=== PATIENT | female | born 1970 | race Caucasian/White ===

== ENCOUNTER 2018-03-27 00:39 | Inpatient (IN) | payer BC ==
[2018-03-27] MEDS ORDERED: Pantoprazole 40 MG VIAL ONE (01:01)
[2018-03-27] MEDS ORDERED: Lactated Ringer's 1,000 ML IV SCH (02:00)
[2018-03-27] MEDS ORDERED: Lactated Ringer's 500 ML IV SCH (02:00)
[2018-03-27] MEDS ORDERED: Morphine 4 MG/ML VIAL ONE (02:52)
--- NOTE | 2018-03-27 02:56 | HP ---
CHIEF COMPLAINT: Severe epigastric pain. HISTORY OF PRESENT ILLNESS: This is a 48-year-old female with a 5-6 week history of epigastric pain. 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 developed severe epigastric p ain. She was taken to the hospital by ambulance. No loss of consciousness. The pain is really eric re with any motion. She was noted to be somewhat hypotensive with systolic blood pressure of 80 and tachycardic to 130. There, she was given IV fluids and is much better now. PAST MEDICAL HISTORY: Significant for a frozen left shoulder that began with a Toradol injection and so she has been on a lot of nonsteroidal anti-inflammatories for that. She also has history of migr martha headaches. The frozen shoulder began in July. MEDICATIONS: Nexium, Topamax. She is on a muscle relaxant and [place]. ALLERGIES: She has no known drug allergies. PAST SURGICAL HISTORY: section. She has had knee arthroscopy, repair of a fractured arm. SOCIAL HISTORY: She is single. 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 No tobacco. Rare alcohol. FAMILY HISTORY: Migraine headaches. PHYSICAL EXAMINATION: VITAL SIGNS: Temperature is 99, pulse 110. She is 94/65. She says she has a long history of low bl ood pressure. GENERAL: She is awake, alert and lying still. Her left shoulder was propped up on pillows. HEENT: Pupils equal, round, and reactive. Extraocular motor intact. Pharynx clear. Good dentition . NECK: Supple, no thyroid masses, no carotid bruits. ABDOMEN: She has got peritonitis in the upper abdomen. Mild tenderness in the lower abdomen. LUNGS: Clear. HEART: Regular rate and rhythm. EXTREMITIES: She has a frozen left shoulder. LABORATORY AND X-RAY FINDINGS: Sodium 139, potassium 3.3, chloride 108, CO2 of 19, creatinine 0.69, BUN of 16, glucose 104. White count 9.8, H&H 12 and 38, platelet count 381. Urinalysis, trace leuko cytes. CT scan shows very tiny punctate area of free air in the proximal duodenum. Minimal free flu id. ASSESSMENT: Perforated duodenal ulcer. PLAN: Admit. IV hydrate. Antibiotics. PLAN: Diagnostic laparoscopy, laparoscopic omental patch.
[2018-03-27] MEDS ORDERED: Ondansetron HCl/PF 8 MG in Sodium Chloride 0.9% 50 ML IVPB SCH ×2 (03:00→09:15)
[2018-03-27] MEDS ORDERED: Ondansetron ODT 4 MG TAB SL PRN (04:43)
[2018-03-27] MEDS ORDERED: Ondansetron HCl/PF 4 MG/2 ML Vial IVP PRN ×2 (04:43→08:50)
[2018-03-27] MEDS ORDERED: MEROPENEM 1 GM/50 ML 1 GM in Premix Bag 1 BAG IVPB SCH (05:00)
[2018-03-27] MEDS ORDERED: Piperacillin/Tazobactam 3.375 GM VIAL ONE (06:13)
[2018-03-27] MEDS ORDERED: Fentanyl 100 MCG/2 ML VIAL ONE ×2 (06:33→06:55)
[2018-03-27] MEDS ORDERED: Bupivacaine HCl 0.25%/Epi 0.0005/PF 10 ML VIAL FS ONE (06:38)
[2018-03-27] MEDS ORDERED: HYDROmorphone 0.5 MG/0.5 ML SYRINGE ONE ×4 (06:56→07:02)
[2018-03-27 07:16] LABS: #Lymphocytes 1.9 thou/uL (1.20-3.40); #Monocytes 0.5 thou/uL (0.11-0.59); #Neutrophils 6.8 thou/uL (1.40-6.50); %Basophils 0.5 % (0.0-1.0); %Eosinophils 0.2 % (0.0-10.0); %Lymphocytes 20.2 % (21.0-51.0); %Monocytes 5.8 % (0.0-10.0); %Neutrophils 73.4 % (42.0-75.0); Hemoglobin 8.8 g/dL (12.0-16.0); Mean Corpuscular HGB CONC 34.6 g/dL (32.0-36.0); Mean Corpuscular Hemoglobin 32.3 pg (27.0-31.0); Mean Corpuscular Volume 93.3 fL (78.0-98.0); Platelet Count 184 thou/uL (130-400); Red Blood Cell (RBC) Count 2.71 mill/uL (4.20-5.40); White Blood Cell (WBC) Count 9.3 thou/uL (4.8-10.8)
[2018-03-27] MEDS ORDERED: Midazolam HCl 5 mg/5 ml Vial ONE (07:19)
[2018-03-27] MEDS ORDERED: Phenylephrine HCL 10 MG/ML VIAL ONE (07:20)
[2018-03-27 07:23] LABS: ALT (SGPT) Less than 7 U/L (8-55); AST (SGOT) 7 U/L (5-34); Albumin 3.2 g/dL (3.5-5.0); Alkaline Phosphatase 53 U/L (40-150); Anion Gap 9 mmol/L (10-20); BUN (Urea Nitrogen) 11 mg/dL (7.0-18.7); Bilirubin, Total 0.6 mg/dL (0.2-1.2); Calc. Creatinine Clearance 0 mL/min (70-130); Calcium 7.7 mg/dL (7.8-10.44); Carbon Dioxide 21 mmol/L (22-29); Chloride 114 mmol/L (98-107); Estimated GFR-MDRD Greater than 90; Globulin 1.8 g/dL (2.4-3.5); Glucose 94 mg/dL (70-105); Potassium 3.4 mmol/L (3.5-5.1); Sodium 141 mmol/L (136-145)
[2018-03-27] MEDS ORDERED: Dextrose 50% Abboject 50 ML SYRINGE SLOW IVP PRN (08:39)
[2018-03-27] MEDS ORDERED: hydrALAZINE 20 MG/ML VIAL SLOW IVP PRN (08:39)
[2018-03-27] MEDS ORDERED: diphenhydrAMINE 50 MG/ML VIAL IVP PRN (08:39)
[2018-03-27] MEDS ORDERED: Dextrose 5% in Water 1,000 ML IV PRN (08:39)
[2018-03-27] MEDS ORDERED: Promethazine HCl 25 MG/ML VIAL IM PRN ×2 (08:39→08:50)
[2018-03-27] MEDS ORDERED: Fentanyl 100 MCG/2 ML VIAL SLOW IVP PRN (08:42)
[2018-03-27] MEDS ORDERED: Acetaminophen 1,000 MG in Premix Bag 1 BAG IVPB PRN (08:43)
[2018-03-27] MEDS ORDERED: Promethazine HCl 25 MG/ML VIAL SLOW IVP PRN (08:50)
[2018-03-27] MEDS ORDERED: HYDROmorphone 2 MG/ML VIAL SLOW IVP PRN (08:50)
[2018-03-27] MEDS ORDERED: Pantoprazole 40 MG VIAL IVP SCH (09:00)
[2018-03-27] MEDS: Piperacillin/Tazobactam 3.375 GM in Sodium Chloride 0.9% 100 ML IVPB SCH ×4 (09:52→23:26)
[2018-03-27] MEDS: Pantoprazole 40 MG VIAL IVP SCH (09:59)
[2018-03-27] MEDS: D5 1/2 NS w/20 mEq KCL 1,000 ML IV SCH ×2 (10:00→19:00)
[2018-03-27 11:34] VITALS: BMI 25.7
[2018-03-27] MEDS ORDERED: Glycopyrrolate 0.2 MG/ML 5 ML SYRINGE ONE (13:09)
[2018-03-27] MEDS ORDERED: PHENYLEPHRINE-NS 100 MCG/ML 10 ML SYRINGE ONE (13:09)
[2018-03-27] MEDS ORDERED: Dexamethasone 20 MG/5 ML VIAL ONE (13:09)
[2018-03-27] MEDS ORDERED: Ondansetron HCl/PF 4 MG/2 ML Vial ONE (13:09)
[2018-03-27] MEDS ORDERED: Esmolol 100 MG/10 ML VIAL ONE (13:09)
[2018-03-27] MEDS ORDERED: Succinylcholine Chloride 20 MG/ML 10 ml SYRINGE FS ONE (13:09)
[2018-03-27] MEDS ORDERED: PROPOFOL 200 MG/20 ML VIAL ONE (13:09)
[2018-03-27] MEDS ORDERED: Lidocaine 1% PF 5 ML VIAL ONE (13:09)
--- NOTE | 2018-03-27 15:57 | OP ---
PREOPERATIVE DIAGNOSIS: Perforated duodenal ulcer. SURGEON: Master Centeno M.D. PROCEDURE PERFORMED: Laparoscopic closure of a perforated duodenal ulcer with omental patch and irri gation of abdomen. INDICATIONS: This is a 48-year-old female, who has been on intensive doses of nonsteroidals for shou lder pain over the last year. She has had a month history of boring epigastric pain that became acut onel severe yesterday afternoon about 1:00 p.m. She went to the ER where a CT scan showed a small foc us of extraluminal air in the first part of the duodenum. FINDINGS: Perforated duodenal ulcer with superior and anterior. The anterior surface was somewhat s uperior on the duodenum between the first and second portion just under the falciform ligament. PROCEDURE IN DETAIL: After informed consent was obtained, the patient was taken to the operating jorge m and given general endotracheal anesthesia. She was placed in the supine position. The abdomen was prepped and draped in usual fashion. Local anesthesia infiltrated subcutaneously and deep and a sub umbilical incision was performed. Veress needle inserted. Drop test performed. Pneumoperitoneum wa s created to a volume of 2 liters of carbon dioxide. Utilizing a bladeless 5 mm trocar and 0-degree laparoscope direct visual entry the abdominal cavity was performed. Pneumoperitoneum was created to a pressure of 15 mmHg and the patient placed in steep reverse Trendelenburg position. A [place] li lien retractor inserted. Left lobe of liver retracted superiorly and the ulcer was found. The ulcer was closed utilizing a 2-0 PDS V-Loc running. Then, the abdomen was thoroughly irrigated after sampl es were obtained for culture. Then continued to irrigate and remove this fluid until the abdomen was clean then took omentum and using 2-0 silk sutures tied intracorporeally. This was used to cover th e perforated area. Then hemostasis assured. Trocars and retractors removed. Abdomen decompressed. Skin closed with interrupted 4-0 Rapide. Dermabond applied. The patient tolerated the procedure we ll and was transferred to recovery in good condition.
[2018-03-27] MEDS: Topiramate 100 MG TAB PO SCH (20:35)
[2018-03-28] MEDS: D5 1/2 NS w/20 mEq KCL 1,000 ML IV SCH ×4 (02:01→20:21)
[2018-03-28 05:20] LABS: #Lymphocytes 1.5 thou/uL (1.20-3.40); #Monocytes 0.5 thou/uL (0.11-0.59); #Neutrophils 7.5 thou/uL (1.40-6.50); %Basophils 0.1 % (0.0-1.0); %Eosinophils 0.2 % (0.0-10.0); %Monocytes 5.3 % (0.0-10.0); %Neutrophils 78.4 % (42.0-75.0); Hemoglobin 8.4 g/dL (12.0-16.0); Mean Corpuscular HGB CONC 33.2 g/dL (32.0-36.0); Mean Corpuscular Hemoglobin 31.2 pg (27.0-31.0); Mean Corpuscular Volume 94.1 fL (78.0-98.0); Platelet Count 245 thou/uL (130-400); RBC Distribution Width 11.9 % (11.5-14.5); Red Blood Cell (RBC) Count 2.69 mill/uL (4.20-5.40); White Blood Cell (WBC) Count 9.6 thou/uL (4.8-10.8)
[2018-03-28] MEDS: Topiramate 100 MG TAB PO SCH ×2 (05:26→20:13)
[2018-03-28] MEDS: Piperacillin/Tazobactam 3.375 GM in Sodium Chloride 0.9% 100 ML IVPB SCH ×4 (05:30→23:24)
[2018-03-28 05:32] LABS: Anion Gap 8 mmol/L (10-20); BUN (Urea Nitrogen) 7 mg/dL (7.0-18.7); Calc. Creatinine Clearance 135 mL/min (70-130); Calcium 8.2 mg/dL (7.8-10.44); Carbon Dioxide 20 mmol/L (22-29); Chloride 111 mmol/L (98-107); Estimated GFR-MDRD Greater than 90; Glucose 128 mg/dL (70-105); Potassium 3.6 mmol/L (3.5-5.1); Sodium 135 mmol/L (136-145)
[2018-03-28] MEDS ORDERED: Enoxaparin Sodium 40 MG/0.4 ML SYRINGE SC SCH (06:00)
[2018-03-28] MEDS: Pantoprazole 40 MG VIAL IVP SCH (08:42)
[2018-03-28] MEDS ORDERED: Rizatriptan Benzoate 10 MG MLT TAB PO PRN (09:48)
--- NOTE | 2018-03-28 12:11 | RAD ---
UPPER GI SINGLE CONTRAST: Date: 03/28/18 PROVIDED CLINICAL HISTORY: Post gastric surgery for gastric ulcer. FINDINGS: Multiple swallows of water soluble contrast were administered orally. Contrast material traverses the gastroesophageal junction normally without holdup. There is no evidence for extravasation of contras t material. IMPRESSION: No evidence for contrast extravasation or holdup. POS: [facility]
[2018-03-28] MEDS: Hydrocodone-Acetamin 15 ML UDCUP PO PRN ×2 (12:52→17:32)
[2018-03-28] MEDS: SUMAtriptan Succinate 50 MG TAB PO PRN (15:52)
[2018-03-28] MEDS: Ondansetron HCl/PF 4 MG/2 ML Vial IVP PRN (18:33)
[2018-03-29] MEDS: Hydrocodone-Acetamin 15 ML UDCUP PO PRN ×4 (00:19→18:21)
[2018-03-29] MEDS: Topiramate 100 MG TAB PO SCH ×2 (04:20→21:43)
[2018-03-29] MEDS: D5 1/2 NS w/20 mEq KCL 1,000 ML IV SCH ×3 (04:20→21:46)
[2018-03-29] MEDS: Piperacillin/Tazobactam 3.375 GM in Sodium Chloride 0.9% 100 ML IVPB SCH ×3 (05:41→18:11)
[2018-03-29] MEDS: Ondansetron HCl/PF 4 MG/2 ML Vial IVP PRN (05:52)
[2018-03-29] MEDS ORDERED: Fluconazole In NaCl,Iso-Osm 200 MG in Premix Bag 1 BAG IVPB SCH (09:00)
[2018-03-29] MEDS: Pantoprazole 40 MG VIAL IVP SCH (09:31)
[2018-03-29] MEDS: Enoxaparin Sodium 40 MG/0.4 ML SYRINGE SC SCH (09:31)
[2018-03-30] MEDS: Piperacillin/Tazobactam 3.375 GM in Sodium Chloride 0.9% 100 ML IVPB SCH ×4 (00:55→17:47)
[2018-03-30 06:44] LABS: #Eosinphils 0.1 thou/uL (0.0-0.7); #Lymphocytes 1.6 thou/uL (1.20-3.40); #Monocytes 0.8 thou/uL (0.11-0.59); #Neutrophils 7.1 thou/uL (1.40-6.50); %Basophils 0.3 % (0.0-1.0); %Eosinophils 0.7 % (0.0-10.0); %Lymphocytes 16.8 % (21.0-51.0); %Neutrophils 74.3 % (42.0-75.0); Hemoglobin 9.3 g/dL (12.0-16.0); Mean Corpuscular HGB CONC 33.8 g/dL (32.0-36.0); Mean Corpuscular Hemoglobin 31.7 pg (27.0-31.0); Mean Corpuscular Volume 93.8 fL (78.0-98.0); Platelet Count 337 thou/uL (130-400); RBC Distribution Width 11.7 % (11.5-14.5); Red Blood Cell (RBC) Count 2.93 mill/uL (4.20-5.40); White Blood Cell (WBC) Count 9.5 thou/uL (4.8-10.8)
[2018-03-30 06:54] LABS: ALT (SGPT) 17 U/L (8-55); AST (SGOT) 14 U/L (5-34); Albumin 3.2 g/dL (3.5-5.0); Alkaline Phosphatase 90 U/L (40-150); Anion Gap 9 mmol/L (10-20); BUN (Urea Nitrogen) 4 mg/dL (7.0-18.7); Bilirubin, Total 1.1 mg/dL (0.2-1.2); Calc. Creatinine Clearance 120 mL/min (70-130); Calcium 8.4 mg/dL (7.8-10.44); Carbon Dioxide 18 mmol/L (22-29); Chloride 108 mmol/L (98-107); Estimated GFR-MDRD Greater than 90; Globulin 2.4 g/dL (2.4-3.5); Glucose 107 mg/dL (70-105); Potassium 3.7 mmol/L (3.5-5.1); Protein, Total 5.6 g/dL (6.0-8.3); Sodium 131 mmol/L (136-145)
[2018-03-30] MEDS: D5 1/2 NS w/20 mEq KCL 1,000 ML IV SCH ×2 (08:50→17:46)
[2018-03-30] MEDS: Topiramate 100 MG TAB PO SCH ×2 (08:51→21:48)
[2018-03-30] MEDS: SUMAtriptan Succinate 50 MG TAB PO PRN (08:51)
[2018-03-30] MEDS: Hydrocodone-Acetamin 15 ML UDCUP PO PRN ×2 (08:52→17:45)
[2018-03-30] MEDS: Enoxaparin Sodium 40 MG/0.4 ML SYRINGE SC SCH (08:54)
[2018-03-30] MEDS: Pantoprazole 40 MG VIAL IVP SCH (09:00)
[2018-03-30] MEDS: Fluconazole In NaCl,Iso-Osm 400 MG in Premix Bag 1 BAG IVPB SCH (09:03)
--- NOTE | 2018-03-30 21:14 | PDOC.PN ---
- Subjective Encounter Start Date: 03/30/18 Encounter Start Time: 21:00 Subjective: Consult for hx of migraine headaches on Topamax currently. Feels better -: since Topamax resumed on schedule. s/p laparoscopic repair of perforated -: duodenal ulcer with omental patch POD #3. Less abd pain, tolerating liquids - Objective MAR Reviewed: Yes Vital Signs & Weight: Vital Signs (12 hours) Temp Pulse Resp BP Pulse Ox 03/30/18 20:00 99.8 F H 95 16 107/73 98 03/30/18 11:45 98.3 F 91 16 110/78 98 Weight Weight 155 lb I&O: 03/29/18 03/30/18 03/31/18 06:59 06:59 06:59 Intake Total 2036 3200 Balance 2036 3200 Result Diagrams: 03/30/18 05:55 03/30/18 05:55 Additional Labs: Microbiology 03/27/18 08:20 Peritoneal fluid Body Fluid Culture - Final Presumptive Radha albicans EKG Reviewed by me: Yes (Tele - SR) Phys Exam - Physical Examination Constitutional: NAD HEENT: PERRLA, sclera anicteric, oral pharynx no lesions Neck: no nodes, no JVD, supple, full ROM Respiratory: no wheezing, no rales, no rhonchi, clear to auscultation bilateral Cardiovascular: RRR, no significant murmur, no rub, gallop mild TTP Gastrointestinal: soft, no distention, positive bowel sounds Musculoskeletal: no edema, pulses present Neurological: non-focal, normal sensation, moves all 4 limbs Psychiatric: normal affect, A&O x 3 Skin: no rash, normal turgor, cap refill <2 seconds Dx/Plan (1) Migraine headache Code(s): G43.909 - MIGRAINE, UNSP, NOT INTRACTABLE, WITHOUT STATUS MIGRAINOSUS Status: Acute Comment: Improved with resumption of Topamax 100mg BID, continue outpt regimen, IVF's, supportive mgmt (2) Perforated duodenal ulcer Code(s): K26.5 - CHRONIC OR UNSPECIFIED DUODENAL ULCER WITH PERFORATION Status : Acute Comment: s/p laparoscopic repair with omental patch POD #3, pain control, OOB (3) Shoulder, capsulitis, adhesive Code(s): M75.00 - ADHESIVE CAPSULITIS OF UNSPECIFIED SHOULDER Status: Chronic Qualifiers: Laterality: left Qualified Code(s): M75.02 - Adhesive capsulitis of left shoulder Comment: Chronic condition, outpt PT/OT after d/c - Plan continue antibiotics, patient financial services specialist, out of bed/ambulate, DVT proph w/SCDs Stable currently -: OOB/ambulate -: Continue Zosyn and Diflucan -: Continue Topamax 100mg BID -: Limit Morphine sulfate as this can precipitate further headaches * Thank you for the consult. Will continue to follow with primary service.
[2018-03-31] MEDS: Piperacillin/Tazobactam 3.375 GM in Sodium Chloride 0.9% 100 ML IVPB SCH ×3 (00:20→12:25)
[2018-03-31] MEDS: D5 1/2 NS w/20 mEq KCL 1,000 ML IV SCH ×2 (00:28→10:00)
[2018-03-31] MEDS: Hydrocodone-Acetamin 15 ML UDCUP PO PRN ×2 (00:34→09:59)
[2018-03-31] MEDS: SUMAtriptan Succinate 50 MG TAB PO PRN (00:41)
[2018-03-31] MEDS: Pantoprazole 40 MG VIAL IVP SCH (09:59)
[2018-03-31] MEDS: Topiramate 100 MG TAB PO SCH (09:59)
[2018-03-31] MEDS: Fluconazole In NaCl,Iso-Osm 400 MG in Premix Bag 1 BAG IVPB SCH (10:00)
[2018-03-31] MEDS: Enoxaparin Sodium 40 MG/0.4 ML SYRINGE SC SCH (10:00)
[2018-03-31 17:11] VITALS: BP 100/65; TEMP 98.1
--- NOTE | 2018-04-01 00:44 | DIS ---
DISCHARGE DIAGNOSES: Perforated duodenal ulcer, migraine headaches, yeast peritonitis. PROCEDURES DURING ADMISSION: 1. Laparoscopic repair of perforated ulcer with omental patch. 2. IV fluids. HOSPITAL COURSE: Patient was admitted. She was given the antibiotics, taken to the operating room w here she underwent a diagnostic laparoscopy, laparoscopic repair of a perforated ulcer and omental pa tch. Cultures grew out yeast, presumptive Radha albicans. She was started on Diflucan. She had a postoperative Gastrografin swallow that was fine. She was started on liquids. She is tolerating th em, but then she developed a severe migraine headache because she had been off her Imitrex that was r estarted; now, she is better. She is tolerating liquids well. She is discharged home on Protonix 40 daily, Diflucan 200 daily, [place] and Zofran. She will follow u p with me in 2 weeks.
== END 2018-03-31 18:26 | disposition home or self-care (01) | DRG 326 ==
LOC: ERS 00:39 → ERHOLD 01:47 → SURG A 09:08
PROVIDERS: ADMIT Surgery; ATTEND Surgery
PROC: 0DQ94ZZ Repair Duodenum, Percutaneous Endoscopic Approach (ICD-10-PCS; principal; 2018-03-27)
PROC: 0DU947Z Supplement Duodenum with Autologous Tissue Substitute, Percutaneous Endoscopic Approach (ICD-10-PCS; 2018-03-27)
DX: K26.5 Chronic or unspecified duodenal ulcer with perforation (principal); K65.9 Peritonitis, unspecified; B37.89 Other sites of candidiasis; M75.02 Adhesive capsulitis of left shoulder; G43.909 Migraine, unspecified, not intractable, without status migrainosus; Z79.891 Long term (current) use of opiate analgesic; Z79.1 Long term (current) use of non-steroidal anti-inflammatories (NSAID); Z87.81 Personal history of (healed) traumatic fracture; Z87.891 Personal history of nicotine dependence
CPT/HCPCS: 36415; 74241; 80048; 80053; 85025; 86850; 86900; 86901; 87070; 87205; 96360; 96361; 96365; 96367; 96375; C9113; J0131; J1100; J1170; J1200; J1450; J1650; J2001; J2185; J2250; J2270; J2370; J2405; J2543; J2550; J2704; J3010; J7050

== ENCOUNTER 2018-04-06 15:36 | Inpatient (IN) | payer BC ==
[~2018-04-06 15:36] MED LIST: ISOVUE-370 76%-LOCM 1 ML ONE
[2018-04-06 17:08] LABS: #Eosinphils 0.1 thou/uL (0.0-0.7); #Monocytes 0.6 thou/uL (0.11-0.59); #Neutrophils 9.2 thou/uL (1.40-6.50); %Basophils 0.2 % (0.0-1.0); %Eosinophils 0.6 % (0.0-10.0); %Lymphocytes 16.9 % (21.0-51.0); %Neutrophils 77.2 % (42.0-75.0); Hemoglobin 11.1 g/dL (12.0-16.0); Mean Corpuscular HGB CONC 34.1 g/dL (32.0-36.0); Mean Corpuscular Hemoglobin 31.6 pg (27.0-31.0); Mean Corpuscular Volume 92.6 fL (78.0-98.0); Mean Platelet Volume 6.4 fL (7.4-10.4); Platelet Count 693 thou/uL (130-400); RBC Distribution Width 12.2 % (11.5-14.5); Red Blood Cell (RBC) Count 3.51 mill/uL (4.20-5.40); White Blood Cell (WBC) Count 11.9 thou/uL (4.8-10.8)
[2018-04-06 17:30] LABS: ALT (SGPT) 9 U/L (8-55); AST (SGOT) 12 U/L (5-34); Alkaline Phosphatase 132 U/L (40-150); Anion Gap 15 mmol/L (10-20); BUN (Urea Nitrogen) 9 mg/dL (7.0-18.7); Bilirubin, Total 0.3 mg/dL (0.2-1.2); Calc. Creatinine Clearance 0 mL/min (70-130); Calcium 9.7 mg/dL (7.8-10.44); Carbon Dioxide 22 mmol/L (22-29); Chloride 105 mmol/L (98-107); Estimated GFR-MDRD 81; Globulin 3.5 g/dL (2.4-3.5); Glucose 107 mg/dL (70-105); Potassium 3.7 mmol/L (3.5-5.1); Protein, Total 7.5 g/dL (6.0-8.3); Sodium 138 mmol/L (136-145)
[2018-04-06 17:44] LABS: BHCG - Serum Negative (NEGATIVE); Pregs Control Background? CLEAR/WHITE (CLR/WHITE); Pregs Control Bar Appear? YES (CONTROL BAR)
[2018-04-06] MEDS ORDERED: Morphine 4 MG/ML VIAL ONE (17:44)
[2018-04-06] MEDS ORDERED: Ondansetron HCl/PF 4 MG/2 ML Vial ONE (17:44)
[2018-04-06] MEDS ORDERED: Piperacillin/Tazobactam 4.5 GM VIAL ONE (17:44)
[2018-04-06] MEDS ORDERED: Sodium Chloride 0.9% 100 ML ONE (17:46)
[2018-04-06 19:08] LABS: Bilirubin Negative (Negative); Blood, Urine Negative (Negative); Glucose, Urine (Dipstick) Negative (Negative); Leukocyte Negative (Negative); Nitrite Negative (Negative); Protein, Urine (Dipstick) Negative (Neg-Trace); Specific Gravity, Urine 1.015 (1.005-1.030); Urobilinogen 0.2 mg/dL (0.2-1.0)
[2018-04-06 19:10] LABS: Clarity CLEAR (Clear)
[2018-04-06 19:11] LABS: Pregnancy Test - Urine (BHCG) Negative (Negative); Pregu Control Background? CLEAR/WHITE (CLR/WHITE); Pregu Control Bar Appear? YES (CONTROL BAR); Specific Gravity 1.015 (1.002-1.036)
--- NOTE | 2018-04-06 20:12 | CT ---
ABDOMEN CT WITH CONTRAST PELVIC CT WITH CONTRAST 04/06/18 HISTORY: Abdominal pain, right sided. Patient had a perforated gastric ulcer two weeks ago. Patient became sep tic at the time of surgery. Patient having worsening tenderness and erythema. COMPARISON: 03/26/18. FINDINGS: ABDOMEN CT: Lung bases demonstrate scar/atelectasis. Normal cardiac silhouette. The descending thoracic aorta and abdominal aorta are unchanged. Symmetric attenuation of the psoas muscles. Portal vein is patent. Ga llbladder is mildly prominent but unremarkable. Stable hypodensity in the left hepatic lobe. Stable enhancement of the liver, spleen, pancreas, and b ilateral adrenal glands. Symmetric enhancement of the kidneys. Bilaterally, no obstructive uropathy. No mesenteric mass, lymphadenopathy, free air, or significant free fluid. Contrast opacifies an overall normal appearing stomach. There is mild mucosal prominence of the gastr ic antrum without evidence of perforation. Duodenum and small bowel loops are normal in caliber. Ileo cecal junction is grossly unremarkable. Normal caliber contrast filled appendix is identified. Scatte red fecal material and contrast in a nondistended, nondilated colon. There is subcutaneous fat stranding and small pockets of air noted along the anterior lateral left an d right abdominal wall. There is stranding of the subcutaneous fat along the right anterior abdominal wall measuring 7.7 x 2.4 cm. This fat has attenuation coefficient of 10 Hounsfield units. An ill-def ined postoperative fluid collection is favored. A completely enhancing well formed abscess is not see n at this time. Continued surveillance is recommended. The possibility of a developing infected fluid collection cannot be completely excluded. Presence of air may be postoperative as there is air on th e contralateral side. PELVIC CT: Probable tampon in the vaginal vault. Uterus and adnexal structures are unremarkable. No pelvic mass, lymphadenopathy, free air or free fluid. Urinary bladder is unremarkable. No lytic lesions in the osseous structures. IMPRESSION: 1. No evidence of free air or abscess within the peritoneal cavity. 2. Asymmetric right ventral subcutaneous fat stranding which may represent an ill-defined postop erative or early infected fluid collection. The margins are not well circumscribed. At this time. a p ercutaneous drainage catheter is not warranted. Continued close surveillance is recommended. POS: [facility]
[2018-04-06] MEDS ORDERED: Morphine 4 MG/ML VIAL SLOW IVP PRN (21:59)
[2018-04-06] MEDS ORDERED: Ondansetron HCl/PF 4 MG/2 ML Vial IVP PRN (21:59)
[2018-04-06] MEDS ORDERED: Ondansetron ODT 4 MG TAB SL PRN (21:59)
[2018-04-06] MEDS: Sodium Chloride 0.9% 1,000 ML IV SCH (22:19)
[2018-04-06] MEDS: Topiramate 100 MG TAB PO SCH (22:19)
[2018-04-06 22:49] VITALS: BMI 25.4
[2018-04-06] MEDS: Piperacillin/Tazobactam 4.5 GM in Sodium Chloride 0.9% 100 ML IVPB SCH (23:00)
[2018-04-07] MEDS: Piperacillin/Tazobactam 4.5 GM in Sodium Chloride 0.9% 100 ML IVPB SCH (06:13)
--- NOTE | 2018-04-07 07:31 | HP ---
CHIEF COMPLAINT: Right lower quadrant abdominal pain. HISTORY OF PRESENT ILLNESS: This is a 48-year-old female who on 03/27/2018 had a laparoscopic closur e of perforated duodenal ulcer with omental patch. Postoperatively, she did have some bruising at th e right trocar site; however, it has gotten much more red, hot. She has developed subjective fever a nd a CT scan consistent with an abscess. PAST SURGICAL HISTORY: She has left frozen shoulder, migraine headaches. MEDICATIONS: Nexium, Topamax. She is on a muscle relaxant and [place]. ALLERGIES: She has no known drug allergies. SOCIAL HISTORY: She is . She is a flight instructor. Occasional alcohol, no tobacco. FAMILY HISTORY: Migraine headaches. PHYSICAL EXAMINATION: VITAL SIGNS: Temperature 98.7, pulse 75, blood pressure 95/66. GENERAL: She is awake, alert, in no apparent distress. HEENT: Unremarkable. LUNGS: Clear. HEART: Regular rate and rhythm. ABDOMEN: There is a tender 8 cm red, swollen area in the right lower quadrant. EXTREMITIES: Unremarkable other than her left frozen shoulder. LABORATORY DATA AND IMAGING: White count is 11.9, H&H is 11 and 32, platelet count 693. Electrolyte s are fine. CT scan shows pockets of air and mixed fluid densities in a swollen area, right lower qu adrant with inflammation. ASSESSMENT: Abdominal wall abscess secondary to infected hematoma. PLAN: Incision and drainage in the operating room. CONSENT: I have discussed the planned procedure as well as risk of bleeding, infection, recurrence. She understands and gives informed consent.
[2018-04-07] MEDS ORDERED: Fentanyl 100 MCG/2 ML VIAL ONE ×3 (09:03→11:05)
[2018-04-07] MEDS ORDERED: HYDROmorphone 0.5 MG/0.5 ML SYRINGE ONE ×2 (09:03→10:51)
[2018-04-07] MEDS ORDERED: Bupivacaine/Epinephrine 0.25% 30 ML VIAL ONE (09:07)
[2018-04-07] MEDS: Sodium Chloride 0.9% 1,000 ML IV SCH (09:43)
[2018-04-07] MEDS ORDERED: Piperacillin/Tazobactam 3.375 GM VIAL ONE (09:44)
[2018-04-07] MEDS ORDERED: Neomycin-Polymyxin 1 ML AMP ONE (09:44)
[2018-04-07] MEDS ORDERED: HYDROcodone/Acetaminophen 10/325 mg Tablet PO PRN ×2 (10:09)
[2018-04-07] MEDS ORDERED: Morphine 4 MG/ML Carpuject SLOW IVP PRN (10:09)
[2018-04-07] MEDS ORDERED: Promethazine HCl 25 MG/ML VIAL IM PRN ×2 (10:09→10:34)
[2018-04-07] MEDS ORDERED: Dextrose 50% Abboject 50 ML SYRINGE SLOW IVP PRN (10:09)
[2018-04-07] MEDS ORDERED: Ondansetron HCl/PF 4 MG/2 ML Vial IVP PRN ×2 (10:09→10:34)
[2018-04-07] MEDS ORDERED: Dextrose 5% in Water 1,000 ML IV PRN (10:09)
[2018-04-07] MEDS ORDERED: hydrALAZINE 20 MG/ML VIAL SLOW IVP PRN (10:09)
[2018-04-07] MEDS ORDERED: Cyclobenzaprine 10 MG TAB PO PRN (10:12)
[2018-04-07] MEDS ORDERED: Zolpidem Tartrate 5 MG TAB PO PRN (10:12)
[2018-04-07] MEDS ORDERED: Meperidine HCl/PF 25 MG/ML VIAL SLOW IVP PRN (10:34)
[2018-04-07] MEDS ORDERED: HYDROmorphone 2 MG/ML VIAL SLOW IVP PRN (10:34)
[2018-04-07] MEDS ORDERED: Promethazine HCl 25 MG/ML VIAL SLOW IVP PRN (10:34)
[2018-04-07] MEDS ORDERED: D5 1/2 NS w/20 mEq KCL 1,000 ML ONE (10:51)
[2018-04-07] MEDS ORDERED: Fluconazole In NaCl,Iso-Osm 200 MG in Premix Bag 1 BAG IVPB SCH (11:00)
[2018-04-07] MEDS ORDERED: Ketorolac Tromethamine 30 MG/ML VIAL IVP SCH (12:00)
[2018-04-07] MEDS: D5 1/2 NS w/20 mEq KCL 1,000 ML IV SCH (12:14)
--- NOTE | 2018-04-07 12:17 | OP ---
DATE OF PROCEDURE: 04/07/2018 PREOPERATIVE DIAGNOSIS: Right lower quadrant abdominal wall abscess. SURGEON: Master Centeno M.D. PROCEDURE PERFORMED: Incision, drainage, and debridement of right lower quadrant abdominal wall absc ess. INDICATIONS: A 48-year-old female who had had a laparoscopic closure of a perforated duodenal ulcer with generalized peritonitis and cultures revealing yeast who has been discharged and came back with increasing swelling, pain, and fever, right lower quadrant. CT scan showed an abscess. FINDINGS: The actual abscess cavity was approximately 8 x 8 cm in diameter. Skin incision was 8 x 3 cm. Excised skin subcu liquefied fascia as well as some muscle. PROCEDURE IN DETAIL: After informed consent was obtained, the patient was taken to the operating jorge m and given general endotracheal anesthesia. She was placed in the supine position. Her abdomen was prepped and draped in usual fashion. An elliptical incision was performed releasing creamy purulent fluid. This was sent for culture, sensitivity, Gram stain. The skin was excised and there was a li quified cavity of liquified fascia. This was excised as well as some muscle fibers. Hemostasis achi eved with electrocautery. The wound was thoroughly irrigated with the pulse hunting sales associate approximately 4 liters used, then again hemostasis assured and a wound VAC was placed. The patient tolerated the p rocedure well and was transferred to recovery in good condition.
[2018-04-07] MEDS: Topiramate 100 MG TAB PO SCH ×2 (12:26→23:04)
[2018-04-07] MEDS ORDERED: Lidocaine 1% PF 5 ML VIAL ONE (14:30)
[2018-04-07] MEDS ORDERED: PROPOFOL 200 MG/20 ML VIAL ONE (14:30)
[2018-04-07] MEDS ORDERED: Dexamethasone 20 MG/5 ML VIAL ONE (14:30)
[2018-04-07] MEDS ORDERED: Succinylcholine Chloride 20 MG/ML 10 ml SYRINGE FS ONE (14:30)
[2018-04-07] MEDS ORDERED: Ondansetron HCl/PF 4 MG/2 ML Vial ONE (14:30)
[2018-04-07] MEDS ORDERED: Metoclopramide HCl 10 MG/2 ML VIAL ONE (14:30)
[2018-04-07] MEDS ORDERED: Ketorolac Tromethamine 30 MG/ML VIAL ONE (14:30)
[2018-04-07] MEDS ORDERED: Piperacillin/Tazobactam 3.375 GM in Sodium Chloride 0.9% 100 ML IVPB SCH (16:00)
[2018-04-07] MEDS: Ketorolac Tromethamine 30 MG/ML VIAL IVP SCH ×2 (17:09→23:05)
[2018-04-07] MEDS: Piperacillin/Tazobactam 3.375 GM in Sodium Chloride 0.9% 100 ML IVPB SCH ×2 (19:06→23:09)
[2018-04-08] MEDS: D5 1/2 NS w/20 mEq KCL 1,000 ML IV SCH ×3 (02:01→13:44)
[2018-04-08 05:20] LABS: #Lymphocytes 1.4 thou/uL (1.20-3.40); #Monocytes 0.4 thou/uL (0.11-0.59); #Neutrophils 6.6 thou/uL (1.40-6.50); %Basophils 0.1 % (0.0-1.0); %Eosinophils 0.5 % (0.0-10.0); %Lymphocytes 16.2 % (21.0-51.0); %Monocytes 4.8 % (0.0-10.0); %Neutrophils 78.4 % (42.0-75.0); Mean Corpuscular HGB CONC 33.9 g/dL (32.0-36.0); Mean Corpuscular Hemoglobin 31.6 pg (27.0-31.0); Mean Corpuscular Volume 93.1 fL (78.0-98.0); Mean Platelet Volume 6.2 fL (7.4-10.4); Platelet Count 616 thou/uL (130-400); Red Blood Cell (RBC) Count 2.86 mill/uL (4.20-5.40); White Blood Cell (WBC) Count 8.4 thou/uL (4.8-10.8)
[2018-04-08] MEDS: Ketorolac Tromethamine 30 MG/ML VIAL IVP SCH ×3 (05:22→20:49)
[2018-04-08] MEDS: Piperacillin/Tazobactam 3.375 GM in Sodium Chloride 0.9% 100 ML IVPB SCH ×2 (05:23→13:37)
[2018-04-08 05:29] LABS: Anion Gap 10 mmol/L (10-20); BUN (Urea Nitrogen) 5 mg/dL (7.0-18.7); Calc. Creatinine Clearance 122 mL/min (70-130); Calcium 8.5 mg/dL (7.8-10.44); Carbon Dioxide 18 mmol/L (22-29); Chloride 114 mmol/L (98-107); Estimated GFR-MDRD Greater than 90; Glucose 144 mg/dL (70-105); Potassium 3.8 mmol/L (3.5-5.1); Sodium 138 mmol/L (136-145)
[2018-04-08] MEDS ORDERED: Enoxaparin Sodium 40 MG/0.4 ML SYRINGE SC SCH (09:00)
[2018-04-08] MEDS ORDERED: Pantoprazole 40 MG VIAL IVP SCH (09:00)
[2018-04-08] MEDS: Topiramate 100 MG TAB PO SCH (09:09)
[2018-04-08 12:31] VITALS: BP 114/74; TEMP 98.6
--- NOTE | 2018-04-08 22:15 | DIS ---
DISCHARGE DIAGNOSIS: Abdominal wall abscess. PROCEDURES DURING ADMISSION: Incision and drainage of abdominal wall abscess. HOSPITAL COURSE: The patient was admitted, given IV antibiotics. CT scan confirmed probable abscess . She was taken to the operating room where she underwent a debridement. She was found to have Cand robles albicans, which is the same organism that she has had from her perforated duodenal ulcer. She is doing fine now. The wound is healing well. She initially had a wound VAC. She preferred to just d o damp to dry. She is discharged home with home health. She will follow up with me in 2 weeks. She will continue with the Diflucan and hydrocodone.
== END 2018-04-08 16:40 | disposition home or self-care (01) | DRG 580 ==
LOC: ERS 15:36 → OBSVTOIN 20:44 → SJJU 20:44 → OBSVTOIN 04-07 10:09 → INTOOBSV 04-07 10:09
PROVIDERS: ADMIT Surgery; ATTEND Surgery
PROC: 0K9 Muscles, Drainage (ICD-10-PCS; principal; 2018-04-07)
PROC: 0KBK0ZZ Excision of Right Abdomen Muscle, Open Approach (ICD-10-PCS; 2018-04-07)
DX: L02.211 Cutaneous abscess of abdominal wall (principal); L76.32 Postprocedural hematoma of skin and subcutaneous tissue following other procedure
CPT/HCPCS: 36415; 74177; 80048; 80053; 81003; 81025; 83605; 84703; 85025; 87040; 87070; 87205; 96361; 96365; 96367; 96374; 96375; C9113; J0131; J1100; J1170; J1450; J1650; J1885; J2001; J2270; J2405; J2543; J2704; J2765; J3010; J3370; J7050